=== PATIENT | female | born 1960 | race Caucasian/White ===

== ENCOUNTER 2019-05-24 14:30 | Emergency (ER) | payer BC ==
--- NOTE | 2019-05-24 15:49 | RAD ---
XR Knee Rt 4 View STANDARD HISTORY: Injury, right knee pain FINDINGS: No fracture or dislocation is identified. Degenerative changes are present.
--- NOTE | 2019-05-24 16:10 | RAD ---
LEFT SHOULDER 2 VIEWS: Date: 05/24/19 HISTORY: Injury, pain. FINDINGS/IMPRESSION: There is a healed fracture of the left clavicular shaft and ossification of the coracoclavicular liga ment. No acute fracture or dislocation is seen. POS: [facility]
[2019-05-24] MEDS ORDERED: HYDROcodone/Acetaminophen 5/325 mg Tablet ONE (16:15)
--- NOTE | 2019-05-24 16:16 | RAD ---
PA CHEST AND LEFT RIB SERIES: Date: 05/24/19 HISTORY: Injury, left chest pain. FINDINGS/IMPRESSION: The heart size is normal. The aorta is tortuous. The lungs are expanded without focal areas of consol idation, pneumothoraces, or pleural effusions. No acute left-sided rib fracture is seen. There is an old, healed fracture of the left clavicle with ossification of the coracoclavicular ligam ent. POS: [facility]
== END 2019-05-24 16:15 | disposition home or self-care (01) ==
LOC: NAV ERS 14:30
DX: S43.402A Unspecified sprain of left shoulder joint, initial encounter (principal); S20.212A Contusion of left front wall of thorax, initial encounter; S80.02XA Contusion of left knee, initial encounter; W19.XXXA Unspecified fall, initial encounter